=== PATIENT | female | born 1985 | race Caucasian/White ===

== ENCOUNTER 2020-11-20 04:33 | Inpatient (IN) | payer OTHER ==
[~2020-11-20 04:33] MED LIST: COLACE100 MG PO; FEOSOL325 MG PO; IBUPROFEN800 MG PO; LOVAZA1 GM PO; MOTRIN600 MG PO; PRENATAL FORMU1 EACH PO; VITAMIN D1000 UNIT PO
[2020-11-20 05:16] LABS: HCT 32.5 % (37.0-47.0); HGB 11.4 g/dl (12.5-16.0); MCH 34.2 pg (25.0-31.0); MCHC 35.1 g/dL (32.0-36.0); MCV 97.6 fL (78.0-100.0); MPV 9.9 fL (6.0-9.5); RBC 3.33 M/uL (4.20-5.40); RDW 12.9 % (11.5-14.0); WBC 8.8 K/uL (4.0-10.5)
[2020-11-20 05:17] LABS: BILIRUBIN NEGATIVE (NEGATIVE); BLOOD 2+ Ery/uL (NEGATIVE); CLARITY CLEAR (CLEAR); COLOR YELLOW (YELLOW); GLUCOSE (U) NORMAL (NORMAL); LEUKOCYTES 1+ Leu/uL (NEGATIVE); NITRITE NEGATIVE (NEGATIVE); PROTEIN NEGATIVE (NEGATIVE); SPECIFIC GRAVITY 1.015 (1.001-1.030); UROBILINOGEN 0.2 mg/dL (0.2-1.0)
[2020-11-20 05:32] LABS: BACTERIA 3+; SQUAMOUS EPITHELIAL CELLS 20-50; URINARY WBC 20-50
[2020-11-21 06:05] LABS: HCT 29.7 % (37.0-47.0); MCH 33.7 pg (25.0-31.0); MCHC 33.7 g/dL (32.0-36.0); RBC 2.97 M/uL (4.20-5.40); RDW 13.2 % (11.5-14.0); WBC 9.5 K/uL (4.0-10.5)
== END 2020-11-21 18:38 | disposition home or self-care (01) | DRG 806 ==
LOC: FOD 04:33 → FOB 04:33 → FOD 04:51 → FOB 04:52
PROVIDERS: ADMIT Obstetrics & Gynecology
PROC: 10E0XZZ Delivery of Products of Conception, External Approach (ICD-10-PCS; principal; 2020-11-20)
PROC: 0HQ9XZZ Repair Perineum Skin, External Approach (ICD-10-PCS; 2020-11-20)
DX: O99.02 Anemia complicating childbirth (principal); D62 Acute posthemorrhagic anemia; Z37.0 Single live birth; Z3A.39 39 weeks gestation of pregnancy; Z20.822 Contact with and (suspected) exposure to COVID-19; O70.0 First degree perineal laceration during delivery; O69.81X0 Labor and delivery complicated by cord around neck, without compression, not applicable or unspecified
CPT/HCPCS: 36415; 81001; 86850; 86900; 86901; J2795; J7120; U0002